=== PATIENT | male | born 1970 | race Caucasian/White ===

== ENCOUNTER → 2023-10-18 06:35 | Day surgery (SDC) | payer OTHER, SELFPAY | LOC: GI 06:35 | PROVIDERS: ATTENDING PHYSICIAN Internal Medicine Gastroenterology | DX: Z12.11 Encounter for screening for malignant neoplasm of colon (principal); D12.0 Benign neoplasm of cecum; K57.30 Diverticulosis of large intestine without perforation or abscess without bleeding; K64.8 Other hemorrhoids; Z86.010 Personal history of colon polyps | CPT/HCPCS: 45385; 45381; 88305 ==

== ENCOUNTER → 2025-03-02 16:01 | Outpatient (REF) | payer OTHER, SELFPAY | LOC: HWRAD 16:01 | PROVIDERS: ATTENDING PHYSICIAN Family Medicine | DX: M25.422 Effusion, left elbow (principal) | CPT/HCPCS: 73080 ==